=== PATIENT | female | born 2000 | race Caucasian/White ===

== ENCOUNTER 2019-10-19 17:27 | Emergency (ER) | payer OTHER ==
[~2019-10-19] VITALS: Ht 154.9 cm; Wt 59.9 kg
== END 2019-10-19 21:31 | disposition home or self-care (01) ==
LOC: ER 17:27
DX: S61.211A Laceration without foreign body of left index finger without damage to nail, initial encounter (principal); W26.0XXA Contact with knife, initial encounter
CPT/HCPCS: 12001; 90471; 90714; 99282

== ENCOUNTER → 2020-05-17 | Outpatient (CLI) | payer OTHER ==
[2020-05-19 02:10] LABS: CHLAMYDIA TRACHOMATIS, NAA Negative (Negative); NEISSERIA GONORRHOEAE, NAA Negative (Negative)
== END | disposition home or self-care (01) ==
LOC: LAB 13:42 → LAB SHORT 13:42
PROVIDERS: Advanced Practice Midwife
DX: Z34.01 Encounter for supervision of normal first pregnancy, first trimester (principal)
CPT/HCPCS: 87491; 87591; G0123

== ENCOUNTER 2020-11-18 04:01 | Inpatient (IN) | payer OTHER ==
[~2020-11-18] VITALS: Ht 154.9 cm; Wt 94.5 kg
[2020-11-18] MEDS ORDERED: ONE A DAY PREN1 EACH PO (04:17)
[2020-11-18 04:50] LABS: BASOPHILS ABSOLUTE AUTO 0.02 K/mm3 (0.00-0.23); BASOPHILS PERCENT AUTO 0 % (0-2); EOSINOPHILS ABSOLUTE AUTO 0.11 K/mm3 (0.00-0.68); EOSINOPHILS PERCENT AUTO 1 % (0-6); Hemoglobin 12.6 g/dL (11.5-16.0); IMMATURE GRAN ABSOLUTE AUTO 0.06 K/mm3 (0.00-0.10); IMMATURE GRAN PERCENT AUTO 0 % (0-1); LYMPHOCYTES ABSOLUTE AUTO 3.39 K/mm3 (0.84-5.20); LYMPHOCYTES PERCENT AUTO 23 % (21-46); MONOCYTES ABSOLUTE AUTO 1.07 K/mm3 (0.16-1.47); MONOCYTES PERCENT AUTO 7 % (4-13); Mean Corpuscular HGB 31.3 pg (26.0-34.0); Mean Corpuscular HGB Conc 34.1 g/dL (31.5-36.5); Mean Corpuscular Volume 92 fL (80-100); Mean Platelet Volume 9.3 fL (9.1-12.4); NEUTROPHILS ABSOLUTE AUTO 10.26 K/mm3 (1.96-9.15); NEUTROPHILS PERCENT AUTO 69 % (41-73); Platelet Count 330 K/mm3 (150-400); RDW Coefficient Variation 12.6 % (11.7-14.2); RDW Standard Deviation 42.1 fL (35.1-46.3); Red Blood Cell Count 4.03 M/mm3 (3.80-5.20); White Blood Cell Count 14.91 K/mm3 (4.00-11.30)
[2020-11-18 05:32] LABS: Influenza A, PCR NEGATIVE (NEGATIVE); Influenza B, PCR NEGATIVE (NEGATIVE); Resp Syncytial Virus, PCR NEGATIVE (NEGATIVE); SARS-Cov-2 (COVID-19) PCR, MMC NEGATIVE (NEGATIVE)
[2020-11-19 05:46] LABS: BASOPHILS ABSOLUTE AUTO 0.02 K/mm3 (0.00-0.23); BASOPHILS PERCENT AUTO 0 % (0-2); EOSINOPHILS ABSOLUTE AUTO 0.21 K/mm3 (0.00-0.68); EOSINOPHILS PERCENT AUTO 1 % (0-6); Hematocrit 34.7 % (33.0-51.0); Hemoglobin 11.8 g/dL (11.5-16.0); IMMATURE GRAN ABSOLUTE AUTO 0.07 K/mm3 (0.00-0.10); IMMATURE GRAN PERCENT AUTO 1 % (0-1); LYMPHOCYTES ABSOLUTE AUTO 3.28 K/mm3 (0.84-5.20); LYMPHOCYTES PERCENT AUTO 21 % (21-46); MONOCYTES ABSOLUTE AUTO 1.09 K/mm3 (0.16-1.47); MONOCYTES PERCENT AUTO 7 % (4-13); Mean Corpuscular HGB 31.4 pg (26.0-34.0); Mean Corpuscular Volume 92 fL (80-100); Mean Platelet Volume 9.3 fL (9.1-12.4); NEUTROPHILS ABSOLUTE AUTO 10.79 K/mm3 (1.96-9.15); NEUTROPHILS PERCENT AUTO 70 % (41-73); Platelet Count 293 K/mm3 (150-400); RDW Coefficient Variation 12.9 % (11.7-14.2); RDW Standard Deviation 43.6 fL (35.1-46.3); Red Blood Cell Count 3.76 M/mm3 (3.80-5.20); White Blood Cell Count 15.46 K/mm3 (4.00-11.30)
--- NOTE | 2020-11-19 11:05 | NUR ---
SITTING UP AT THIS TIME. REPORT TO VIKAS DC.
== END 2020-11-19 16:47 | disposition home or self-care (01) | DRG 807 ==
LOC: OBS 04:01 → BC 04:03 → OBS 04:11 → BC 04:13
PROVIDERS: Advanced Practice Midwife; ADMIT Obstetrics & Gynecology
PROC: 10E0XZZ Delivery of Products of Conception, External Approach (ICD-10-PCS; principal; 2020-11-18)
PROC: 00HU33Z Insertion of Infusion Device into Spinal Canal, Percutaneous Approach (ICD-10-PCS; 2020-11-18)
PROC: 3E0R3BZ Introduction of Anesthetic Agent into Spinal Canal, Percutaneous Approach (ICD-10-PCS; 2020-11-18)
DX: O69.81X0 Labor and delivery complicated by cord around neck, without compression, not applicable or unspecified (principal); Z37.0 Single live birth; Z3A.37 37 weeks gestation of pregnancy; Z20.822 Contact with and (suspected) exposure to COVID-19
CPT/HCPCS: 0241U; 36415; 51702; 59025; 81003; 85025; 86850; 86900; 86901; 99213; A9270; J1885; J2001; J2590; J3010; J7120

== ENCOUNTER → 2022-11-01 | Outpatient (CLI) | payer OTHER ==
[~2022-11-01] MED LIST: ONE A DAY PREN1 EACH PO
== END | disposition home or self-care (01) ==
LOC: LAB 11:09 → LAB SHORT 11:09
DX: O09.93 Supervision of high risk pregnancy, unspecified, third trimester (principal)
CPT/HCPCS: 87081; 87150

== ENCOUNTER → 2025-05-12 | Outpatient (CLI) | payer OTHER ==
[~2025-05-12] MED LIST changes: +HURRICAINE ONE1 EACH MM; +IBU800 MG PO; +LANOLIN40 GM TOP; +PRENATAL TABLE1 EAC2 PO; +TUCKS1 EACH TOP
[2025-05-12 21:00] LABS: Bacterial Vaginosis PCR Negative (NEGATIVE); Candida glabrata-krusei, PCR NOT DETECTED (NOT DETECT)
[2025-05-12 21:21] LABS: Candida Group, PCR DETECTED (NOT DETECT)
== END ==
LOC: LAB SHORT 17:14 → LAB 17:14
PROVIDERS: Advanced Practice Midwife
DX: N76.0 Acute vaginitis (principal)
CPT/HCPCS: 81515

== ENCOUNTER → 2025-05-26 | Outpatient (CLI) | payer OTHER | END | disposition home or self-care (01) | LOC: LAB 15:24 → LAB SHORT 15:24 | DX: O09.93 Supervision of high risk pregnancy, unspecified, third trimester (principal); Z3A.00 Weeks of gestation of pregnancy not specified | CPT/HCPCS: 87081 ==

== ENCOUNTER 2025-06-24 17:04 | Inpatient (IN) | payer OTHER ==
[~2025-06-24] VITALS: Ht 154.9 cm; Wt 99.0 kg
[2025-06-24] VITALS (22 sets, daily range): BP systolic 87–142; BP diastolic 56–85
[~2025-06-24 17:04] MED LIST changes: +Methylergonovine Maleate 0.2MG / ML 1ML Amp IV ONE
[2025-06-24] MEDS ORDERED: FentaNYL 2mcg/ml-Bup 0.1% Epd 250 ML EPI PRN (18:30)
[2025-06-24] MEDS ORDERED: Oxytocin 10 Unit / ML Vial IM PRN (18:30)
[2025-06-24] MEDS ORDERED: Carboprost Tromethamine 250 MCG/ML 1ML Amp IM PRN (18:30)
[2025-06-24] MEDS ORDERED: FentaNYL Citrate 50 MCG/ML 2 ML Injection IV PRN (18:30)
[2025-06-24] MEDS ORDERED: OXYTOCIN/RINGER'S LACTATE 500 ML IV PRN (18:30)
[2025-06-24] MEDS ORDERED: ePHEDrine Sulfate 50 MG/ML 1ML Injection XX PRN (18:30)
[2025-06-24] MEDS ORDERED: Methylergonovine Maleate 0.2MG / ML 1ML Amp IM PRN (18:30)
[2025-06-24] MEDS ORDERED: Tranexamic Acid 100 ML IV PRN (18:35)
[2025-06-24] MEDS ORDERED: Ondansetron HCl 2 MG / ML 2ML Vial IV PRN (18:35)
[2025-06-24] MEDS ORDERED: OXYTOCIN/RINGER'S LACTATE 500 ML IV ONE (18:42)
[2025-06-24 18:53] LABS: BASOPHILS ABSOLUTE AUTO 0.02 K/mm3 (0.00-0.23); BASOPHILS PERCENT AUTO 0 % (0-2); EOSINOPHILS ABSOLUTE AUTO 0.08 K/mm3 (0.00-0.68); EOSINOPHILS PERCENT AUTO 1 % (0-6); Hematocrit 31.3 % (33.0-51.0); Hemoglobin 10.2 g/dL (11.5-16.0); IMMATURE GRAN ABSOLUTE AUTO 0.04 K/mm3 (0.00-0.10); IMMATURE GRAN PERCENT AUTO 0 % (0-1); LYMPHOCYTES ABSOLUTE AUTO 2.74 K/mm3 (0.84-5.20); LYMPHOCYTES PERCENT AUTO 23 % (21-46); MONOCYTES ABSOLUTE AUTO 0.89 K/mm3 (0.16-1.47); MONOCYTES PERCENT AUTO 7 % (4-13); Mean Corpuscular HGB Conc 32.6 g/dL (31.5-36.5); Mean Corpuscular Volume 83 fL (80-100); NEUTROPHILS ABSOLUTE AUTO 8.37 K/mm3 (1.96-9.15); NEUTROPHILS PERCENT AUTO 69 % (41-73); NRBC ABSOLUTE 0.00 K/mm3 (0.00-0.02); NRBC Auto 0.0 /100 WBC (0.0-0.2); Platelet Count 334 K/mm3 (150-400); RDW Coefficient Variation 14.7 % (11.7-14.2); RDW Standard Deviation 44.6 fL (35.1-46.3)
[2025-06-24] MEDS ORDERED: OMEP20ER PO (21:07)
[2025-06-24] MEDS ORDERED: OXYTOCIN/RINGER'S LACTATE 500 ML IV SCH (23:05)
[2025-06-25] VITALS (41 sets, daily range): BP systolic 102–132; BP diastolic 55–71
[2025-06-25] MEDS ORDERED: OXYTOCIN/RINGER'S LACTATE 500 ML IV SCH (02:45)
[2025-06-25] MEDS ORDERED: Oxytocin 10 Unit / ML Vial IM ONE (02:45)
[2025-06-25] MEDS ORDERED: Methylergonovine Maleate 0.2MG / ML 1ML Amp IM PRN (02:45)
[2025-06-25] MEDS ORDERED: Ketorolac Tromethamine 30mg Vial IV PRN (02:50)
[2025-06-25] MEDS ORDERED: FLU VACC TS2025-26(6MOS UP)/PF 45 MCG/0.5 ML SYRINGE IM SCH (02:50)
[2025-06-25] MEDS ORDERED: Witch Hazel/Glycerin PADS TOP PRN (02:50)
[2025-06-25] MEDS ORDERED: Carboprost Tromethamine 250 MCG/ML 1ML Amp IM PRN (02:50)
[2025-06-25] MEDS ORDERED: Benzocaine Topical Anesthetic Spray 60GM TOP PRN (02:50)
--- NOTE | 2025-06-25 03:19 | NUR ---
MYRANDA MIGUEL AT BEDSIDE PREFORMING VAG SWEEP
--- NOTE | 2025-06-25 04:00 | NUR ---
PPH 800MG CYTO PLACED RECTALLY BY MYRANDA MIGUEL, PT ALSO RECIEVED IM METHERGINE, SECOND BAG OF OXYTOCIN 500ML, TXA. SEE MAR
--- NOTE | 2025-06-25 04:08 | NUR ---
PROVIDER MYRANDA MIGUEL DISCUSSING OPTIONS AND TREATMENTS WITH PT. PT AGREEABLE TO BLOOD TRANSFUSION AT THIS TIME. PT V/U OF RISKS VS BENEFITS WITH NO QUESTIONS FROM PT OR FAMILY.
[2025-06-25] MEDS ORDERED: CeFAZolin Sodium 2,000 MG in NS 100 ML IV ONE (04:10)
[2025-06-25 04:14] LABS: Hematocrit 26.0 % (33.0-51.0); Hemoglobin 8.6 g/dL (11.5-16.0); Mean Corpuscular HGB Conc 33.1 g/dL (31.5-36.5); Mean Corpuscular Volume 84 fL (80-100); NRBC ABSOLUTE 0.00 K/mm3 (0.00-0.02); NRBC Auto 0.0 /100 WBC (0.0-0.2); Platelet Count 312 K/mm3 (150-400); RDW Coefficient Variation 14.7 % (11.7-14.2); RDW Standard Deviation 45.1 fL (35.1-46.3)
[2025-06-25] MEDS ORDERED: NS 1,000 ML IV ONE (04:14)
[2025-06-25 04:37] LABS: Fibrinogen 450.0 mg/dL (170-430); Prothrombin Time Results 10.4 Sec (9.7-11.5)
[2025-06-25 07:31] LABS: Hematocrit 31.3 % (33.0-51.0); Hemoglobin 10.4 g/dL (11.5-16.0); Mean Corpuscular HGB Conc 33.2 g/dL (31.5-36.5); Mean Corpuscular Volume 84 fL (80-100); NRBC ABSOLUTE 0.00 K/mm3 (0.00-0.02); NRBC Auto 0.0 /100 WBC (0.0-0.2); Platelet Count 304 K/mm3 (150-400); RDW Coefficient Variation 15.4 % (11.7-14.2); RDW Standard Deviation 47.5 fL (35.1-46.3)
[2025-06-25 07:53] LABS: Fibrinogen 326.0 mg/dL (170-430); Prothrombin Time Results 10.3 Sec (9.7-11.5)
[2025-06-25] MEDS ORDERED: Prenatal Vit/FE Fumarate/FA 1 Tab PO SCH (09:00)
[2025-06-25 10:07] LABS: Hematocrit 30.3 % (33.0-51.0); Hemoglobin 10.0 g/dL (11.5-16.0); Mean Corpuscular HGB Conc 33.0 g/dL (31.5-36.5); Mean Corpuscular Volume 84 fL (80-100); NRBC ABSOLUTE 0.00 K/mm3 (0.00-0.02); NRBC Auto 0.0 /100 WBC (0.0-0.2); Platelet Count 303 K/mm3 (150-400); RDW Coefficient Variation 15.2 % (11.7-14.2); RDW Standard Deviation 47.0 fL (35.1-46.3)
[2025-06-25 11:14] LABS: Fibrinogen 494.0 mg/dL (170-430); Prothrombin Time Results 10.2 Sec (9.7-11.5)
[2025-06-25] MEDS ORDERED: IBUP800 PO (15:26)
--- NOTE | 2025-06-25 19:15 | NUR ---
REPORT TO KRISTEL DC. PT HAS FELT REALLY GOOD TODAY. READY TO GET UP AND VOID AND SHOWER. PT HAS NO COMPLAINTS AND DENIES PAIN. WILL CONTINUE I&OS AND WEIGHT PADS.
[2025-06-26 02:02] VITALS: BP 109/59
[2025-06-26 04:56] VITALS: BP 112/57
[2025-06-26 05:29] LABS: Hematocrit 26.3 % (33.0-51.0); Hemoglobin 8.6 g/dL (11.5-16.0); Mean Corpuscular HGB Conc 32.7 g/dL (31.5-36.5); Mean Corpuscular Volume 87 fL (80-100); NRBC ABSOLUTE 0.00 K/mm3 (0.00-0.02); NRBC Auto 0.0 /100 WBC (0.0-0.2); Platelet Count 282 K/mm3 (150-400); RDW Coefficient Variation 15.4 % (11.7-14.2); RDW Standard Deviation 48.7 fL (35.1-46.3)
[2025-06-26 05:37] LABS: Fibrinogen 434.0 mg/dL (170-430); Prothrombin Time Results 10.0 Sec (9.7-11.5)
[2025-06-26 08:01] VITALS: BP 121/59
[2025-06-26] MEDS ORDERED: Sod Ferric Gluc Complx/Sucrose 125 MG in NS 100 ML IV ONE (08:55)
== END 2025-06-26 11:20 | disposition home or self-care (01) | DRG 807 ==
LOC: OBS 17:04 → BC 17:10 → OBS 18:13 → BC 18:14
PROVIDERS: Advanced Practice Midwife; ADMIT Advanced Practice Midwife
PROC: 00HU33Z Insertion of Infusion Device into Spinal Canal, Percutaneous Approach (ICD-10-PCS; 2025-06-24)
PROC: 3E0R3BZ Introduction of Anesthetic Agent into Spinal Canal, Percutaneous Approach (ICD-10-PCS; 2025-06-24)
PROC: 10E0XZZ Delivery of Products of Conception, External Approach (ICD-10-PCS; principal; 2025-06-25)
PROC: 4A1HXCZ Monitoring of Products of Conception, Cardiac Rate, External Approach (ICD-10-PCS; 2025-06-25)
DX: O42.12 Full-term premature rupture of membranes, onset of labor more than 24 hours following rupture (principal); Z37.0 Single live birth; Z3A.39 39 weeks gestation of pregnancy; O99.02 Anemia complicating childbirth; O99.62 Diseases of the digestive system complicating childbirth; K21.9 Gastro-esophageal reflux disease without esophagitis; O99.214 Obesity complicating childbirth; O69.81X0 Labor and delivery complicated by cord around neck, without compression, not applicable or unspecified
CPT/HCPCS: 36415; 51702; 59025; 85025; 85027; 85384; 85610; 85730; 86850; 86900; 86901; 86923; 87210; 99215; A9270; J0690; J1885; J2210; J2405; J2590; J2916; J7030; J7120; P9016

== ENCOUNTER 2025-07-01 20:16 | Inpatient (IN) | payer OTHER ==
[~2025-07-01] VITALS: Ht 154.9 cm; Wt 93.1 kg
[2025-07-01] VITALS (11 sets, daily range): BP systolic 127–197; BP diastolic 65–93
[~2025-07-01 20:16] MED LIST changes: +IBUP800 PO; -Methylergonovine Maleate 0.2MG / ML 1ML Amp IV ONE; +OMEP20ER PO
[2025-07-01] MEDS ORDERED: Magnesium Sul 4 GM/Water100 ML 100 ML IV ONE (20:45)
[2025-07-01] MEDS ORDERED: Labetalol HCL 5 MG/ML 4ML Injection (Single Dose) IV ONE (20:45)
[2025-07-01] MEDS ORDERED: Labetalol HCL 5 MG/ML 4ML Injection (Single Dose) ONE (20:51)
[2025-07-01 21:04] LABS: BASOPHILS ABSOLUTE AUTO 0.03 K/mm3 (0.00-0.23); BASOPHILS PERCENT AUTO 0 % (0-2); EOSINOPHILS ABSOLUTE AUTO 0.15 K/mm3 (0.00-0.68); EOSINOPHILS PERCENT AUTO 1 % (0-6); Hematocrit 30.8 % (33.0-51.0); Hemoglobin 9.9 g/dL (11.5-16.0); IMMATURE GRAN ABSOLUTE AUTO 0.05 K/mm3 (0.00-0.10); IMMATURE GRAN PERCENT AUTO 0 % (0-1); LYMPHOCYTES ABSOLUTE AUTO 3.00 K/mm3 (0.84-5.20); LYMPHOCYTES PERCENT AUTO 27 % (21-46); MONOCYTES ABSOLUTE AUTO 0.66 K/mm3 (0.16-1.47); MONOCYTES PERCENT AUTO 6 % (4-13); Mean Corpuscular HGB Conc 32.1 g/dL (31.5-36.5); Mean Corpuscular Volume 89 fL (80-100); NEUTROPHILS ABSOLUTE AUTO 7.37 K/mm3 (1.96-9.15); NEUTROPHILS PERCENT AUTO 66 % (41-73); NRBC ABSOLUTE 0.00 K/mm3 (0.00-0.02); NRBC Auto 0.0 /100 WBC (0.0-0.2); Platelet Count 493 K/mm3 (150-400); RDW Coefficient Variation 17.2 % (11.7-14.2); RDW Standard Deviation 52.2 fL (35.1-46.3)
[2025-07-01 21:21] LABS: Fibrinogen 385.0 mg/dL (170-430); Prothrombin Time Results 10.4 Sec (9.7-11.5)
[2025-07-01 21:21] LABS: Alanine Aminotransfer (ALT/SGP 24.0 U/L (12-78); Albumin, Blood 2.8 g/dL (3.4-5.0); Albumin/Globulin Ratio 0.7 (0.8-1.8); Anion Gap 8.0 mmol/L (3-11); Aspartate Aminotrans (AST/SGOT 13.0 U/L (12-37); Bilirubin, Total 0.3 mg/dL (0.1-1.0); Blood Urea Nitrogen 8.0 mg/dL (8-24); CO2, Blood 26.0 mmol/L (21-32); Calcium, Blood 8.5 mg/dL (8.5-10.1); Chloride, Blood 108.0 mmol/L (98-108); Creatinine, Blood 0.62 mg/dL (0.40-1.00); Globulin, Blood 4.0 g/dL (2.2-4.0); Glucose, Blood 88.0 mg/dL (70-99); Lactate Dehydrogenase (Ld),Bld 213.0 U/L (100-240); Potassium, Blood 3.6 mmol/L (3.5-5.5); Sodium, Blood 138.0 mmol/L (136-145); Total Protein, Blood 6.8 g/dL (6.4-8.2)
[2025-07-02] VITALS (21 sets, daily range): BP systolic 118–150; BP diastolic 60–77
[2025-07-02] MEDS ORDERED: Ketorolac Tromethamine 30mg Vial IV ONE (08:45)
--- NOTE | 2025-07-02 12:02 | NUR ---
Pt resting in bed, holding sleeping nb. Denies needs.
[2025-07-03 00:02] VITALS: BP 120/66
[2025-07-03 04:16] VITALS: BP 114/82
[2025-07-03 08:36] VITALS: BP 130/71
[2025-07-03 11:30] VITALS: BP 140/81
[2025-07-03 12:26] VITALS: BP 133/82
--- NOTE | 2025-07-03 12:34 | NUR ---
DISCHARGE PT CALLED AND READY TO GO HOME. PT UP WALKING AROUND IN HER ROOM. PT HAS NO COMPLAINTS AND FEELING GOOD. PT VERBALIZES DC INSTRUCTIONS AND FOLLOW UP APPOINTMENTS. PT HAS NO QUESTIONS OR CONCERNS.
== END 2025-07-03 12:33 | disposition home or self-care (01) | DRG 776 ==
LOC: OBS 20:16 → BC 20:17 → OBS 20:48 → BC 20:49
PROVIDERS: ADMIT Advanced Practice Midwife
DX: O14.15 Severe pre-eclampsia, complicating the puerperium (principal)
CPT/HCPCS: 36415; 80053; 83615; 85025; 85384; 85610; 85730; A9270; J1885; J3475; J7120